=== PATIENT | female | born 1985 | race Caucasian/White ===

== ENCOUNTER 2020-11-17 22:15 | Inpatient (IN) ==
[2020-11-17] MEDS ORDERED: OXYTOCIN 30 UNITS/500 ML BAG IV PRN (22:36)
[2020-11-17] MEDS ORDERED: LACTATED RINGER'S 1,000 ML IV PRN (22:36)
[2020-11-17 22:57] LABS: Hematocrit (blood only) 40.5 % (37-47); Hemoglobin 13.9 g/dL (12.0-16.0); Mean Corpuscular Hemoglobin 29.3 pg (25-34); Mean Corpuscular Hgb Conc 34.3 g/dL (32-36); Mean Corpuscular Volume 85.4 fL (80-100); Mean Platelet Volume 10.6 fL (7.4-10.4); Platelet Count 185 K/uL (130-400); RDW Coefficient of Variation 14.1 % (11.5-14.5); RDW Standard Deviation 44.2 fL (36.4-46.3); Red Blood Count 4.74 M/uL (4.2-5.4); White Blood Count 9.67 K/uL (4.8-10.8)
[2020-11-17 23:14] LABS: Albumin Level 2.5 gm/dl (3.4-5.0); BUN Creatinine Ratio 16.8 (10-20); Calcium 9.7 mg/dl (8.5-10.1); Creatinine Clr Calc Pharmacy 105.1 ml/min; Est GFR (African American) 116.8; Est GFR (Non-African American) 100.7; Potassium 3.9 mmol/L (3.5-5.1)
[2020-11-17 23:17] LABS: Albumin Globulin Ratio 0.6 (0.9-2); Bilirubin,Total 0.3 mg/dl (0.2-1); Globulin 4.2 gm/dl (2.5-4.0); Total Protein 6.7 gm/dl (6.4-8.2)
[2020-11-18] MEDS ORDERED: LIDOCAINE HCL 1% 20 ML VIAL ONE (00:11)
--- NOTE | 2020-11-18 01:17 | History & Physical Report ---
Date of Service November 18, 2020 Assessment & Plan (1) Gestational diabetes: (2) Supervision of elderly multigravida, antepartum: (3) Active labor at term: labs reviewed, pt has been admitted, anticip soon. fhts categ 1. Admission and Anticipated Discharge Date Admission Date: November 17, 2020 History of Present Illness Chief Complaint: regular ctx Primary Care Provider: Nena Alcantara, 34yo at 38+wks eggeni presents to L&D with above cc. She has history of fast labor with first preganncy and called with ctx about 4- 7min apart in past hour and told to come in for evaluation. Upon arrival ctx q 2min and she was 5cm per nurse and admitted. No rom. PNC c/b 1. GDM, diet 2. AMA 3. Prior with GHTN PNL RH pos, RI, GBS neg OBH: x 1 GYNH: nl paps no stds Allergies Allergy/AdvReac Type Severity Reaction Status Date / Time amoxicillin Allergy Verified 11/13/20 09:14 Penicillins Allergy Verified 11/13/20 09:14 Home Medications Medication Instructions Recorded Confirmed Type prenat.vits,erica,lhy-forr-qlqan 1 tab PO DAILY 04/15/20 11/17/20 History acetone (urine) test #50 ea 09/19/20 11/13/20 Rx blood sugar diagnostic #150 ea 09/19/20 11/13/20 Rx blood-glucose meter #1 ea 09/19/20 11/13/20 Rx lancets #102 ea 09/19/20 11/13/20 Rx aspirin 81 mg PO DAILY 11/17/20 11/17/20 History Patient History Medical History (Updated 11/18/20 @ 01:35 by Cathy Werner MD, FACOG) Gestational hypertension Supervision of normal intrauterine in multigravida Varicella vaccine Surgical History No history of previous surgery Family History Other Dyslipidemia Hypertension Denies family history of Ovarian cancer Colorectal cancer Social History (Updated 04/15/20 @ 14:16 by Magda Marsh) Smoking Status: Never smoker Hx Alcohol Use: No Hx Substance Use: No Preferred Language: Stateless Communication Ability: Effective Health Information Technician Required: Voice Beliefs That Will Affect Care: None marital status: marital status details: Philip Stark [phone] Current Living Situation: Spouse and Family Current Living Situation Comment: Lives with spouse and son, 1 cat, does not change litter current occupational status: unemployed Other Information That Helps Us Care for You: No Feels Safe at Home: Yes Safety Concerns: Feels Safe At This Time Assistive Devices: None Review of Systems no fever Physical Exam Constitutional: WD/WN, vitals as above Genitourinary: Manual OB Exam: + cervical dilation 10 cm, + cervical effacement 100%, + station 0 and + amniotic fluid (AROM clear) clear OB Exam Monitor Tracing: + external FHT monitor used (135 mod variability), + external uterine monitor used (q2), + category I and + normal FHT variability Results & Data ([facility]) Vital Signs (Past 12 Hours) Vital Signs Temp Pulse Resp BP 11/17/20 22:59 98.1 F 88 123/73 11/17/20 22:42 18 11/17/20 22:29 93 H 143/80 H Coding Level of Care Code None Diagnoses Gestational diabetes O24.419 Supervision of elderly multigravida, antepartum O09.529 Active labor at term
--- NOTE | 2020-11-18 01:37 | Delivery Summary ---
Vaginal Delivery Summary Date of Service November 18, 2020 Vaginal Delivery Summary and 2nd Degree LAC The patient dilated to complete and pushed to deliver a viable male infant Apgars 8 and 9 via over 2nd degree perineal laceration. Loose nuchal x1 noted and delivered through. Mouth and nose bulb suctioned at perineum. Shoulders and body delivered with ease. Infant was vigorous and crying at . Cord clamped at 30 seconds of life and to maternal abdomen where the cord was then doubly clamped and cut. Placenta delivered spontaneously and intact, three-vessel cord. Hemostasis achieved with dilute pitocin and uterine massage. Laceration repaired after 1% local lidocaine anesthesia with 3-0 vicryl in usual fashion. Cervix and sulci intact. EBL 300 cc. Mother and baby stable in recovery. [facility] [place] Vaginal Delivery Charge Delivery Type Details: and 2nd Degree LAC
[2020-11-18] MEDS ORDERED: BENZOCAINE 20% AER SPR 82.5 GM CAN EXT PRN (01:40)
[2020-11-18] MEDS ORDERED: SUPERCREAM 0.870% 15 GM JAR EXT PRN (01:40)
[2020-11-18] MEDS ORDERED: HYDROCORTISONE ACETATE 25 MG SUPP PR PRN (01:40)
[2020-11-18] MEDS ORDERED: oxyCODONE/ACETAMINOPHEN 5mg/325mg TAB PO PRN (01:40)
[2020-11-18] MEDS ORDERED: ACETAMINOPHEN 325 MG TAB PO PRN (01:40)
[2020-11-18] MEDS ORDERED: IBUPROFEN 600 MG TAB PO PRN (01:40)
[2020-11-18] MEDS ORDERED: OXYTOCIN 30 UNITS/500 ML BAG IV PRN (01:40)
[2020-11-18] MEDS ORDERED: DIPHTHERIA/TETANUS/PERTUSSIS 0.5 ML SYR/VIAL IM ONE (01:40)
[2020-11-18] MEDS ORDERED: OXYTOCIN 20 UNITS in LACTATED RINGER'S 1,000 ML IV SCH (01:45)
[2020-11-18] MEDS: DOCUSATE SODIUM 100 MG CAP PO SCH ×2 (08:47→20:27)
--- NOTE | 2020-11-19 08:15 | Obstetrical Progress Note ---
Date of Service November 19, 2020 Assessment & Plan (1) : PPD#1 doing well. Would like to go home today. Discharge instructions reviewed. Followup 6w PP. Subjective Ambulation: ambulating normally Voiding: no voiding problems Diet Tolerance:: regular diet Lochia:: Moderate Feeding Type:: breast feeding Review of Systems All systems reviewed & are unremarkable except as noted in HPI & below Physical Exam Constitutional WD/WN, vitals as above no acute distress Respiratory normal respiratory effort Cardiovascular Rate/Rhythm: regular rate and regular rhythm Gastrointestinal (Abdomen) Inspection/Auscultation: abdomen normal to inspection; abdomen not distended Percussion/Palpation: abdomen soft Genitourinary OB Exam Abdomen: + fundal height Fundus: + firm; not tender Results & Data ([facility]) Vital Signs (Past 12 Hours) Vital Signs Temp Pulse Resp BP Pulse Ox 11/19/20 07:51 36.5 C 79 18 110/74 97 11/18/20 23:40 36.6 C 74 17 106/69 97 11/18/20 20:30 36.5 C 81 18 105/70
[2020-11-19] MEDS: DOCUSATE SODIUM 100 MG CAP PO SCH (09:54)
== END 2020-11-19 17:20 | disposition home or self-care (01) | DRG 807 ==
LOC: OPB 22:15 → 4S1 22:17 → 4S2 11-18 04:21